=== PATIENT | male | born 1945 | race Hispanic/Latino ===

== ENCOUNTER 2016-12-27 13:32 | Emergency (ER) | payer BC, MEDICARE ==
[2016-12-27 15:07] LABS: Eosinophils % (Auto) 3.2 % (0.0-4.3); Hemoglobin 8.3 gm/dl (11.8-15.2); Mean Corpuscular HGB Conc 32 % (32-34); Mean Corpuscular Hemoglobin 28 pg (28-32); Mean Corpuscular Volume 86 fl (84-94); Platelet Count 374 K/mm3 (140-440); Red Blood Count 3.02 M/mm3 (3.65-5.03); Red Cell Distribution Width 17.3 % (13.2-15.2); White Blood Count 15.8 K/mm3 (4.5-11.0)
[2016-12-27 15:25] LABS: BUN/Creatinine Ratio 9.15; Calcium 8.4 mg/dL (8.4-10.2); Chloride 94.1 mmol/L (98-107); Potassium 3.9 mmol/L (3.6-5.0)
[2016-12-27] MEDS ORDERED: TYLENOL PO ONE (20:30)
[2016-12-27] MEDS ORDERED: TYLENOL ONE (20:44)
--- NOTE | 2016-12-28 01:36 | XRay Report ---
FINAL REPORT PROCEDURE: XR HIP 2-3V LT TECHNIQUE: LEFT hip radiographs, AP and lateral views. HISTORY: pain COMPARISON: No prior studies are available for comparison. FINDINGS: Fracture (s) and/or Dislocation(s): None . Joint space(s): There mild narrowing of the joint space.. Soft tissues: Normal . Bone mineralization: Normal . Foreign bodies: None . IMPRESSION: No evident acute fracture or dislocation. Mild arthritis..
[2016-12-28] MEDS ORDERED: MORPHINE IM ONE (01:53)
--- NOTE | 2016-12-28 02:25 | Emergency Department Report ---
HPI - General Chief Complaint: Extremity Injury, Lower Time Seen by Provider: 12/28/16 01:06 - HPI HPI: This is a 71-year-old male who presents to the emergency department from home with complaint of left hip pain for the past 2-3 days. It started on Tuesday, without any trauma, but became much worse this morning. It is to the point where the patient is unable to ambulate or even lift his leg as it increases his pain. He denies any actual weakness or numbness. Patient has some chronic back pains. When he moves the leg the pain goes down the front of his leg from the hip. He has taken only some Tylenol for his pain without any relief. He has a history of rheumatoid arthritis, COPD, insulin-dependent diabetes, GERD, coronary artery disease with 3 OR/3 stents and quadruple bypass , end-stage renal disease on dialysis Tuesday/Tuesday/Tuesday. Patient missed his dialysis this morning secondary to his symptoms. His primary care doctor is [facility], his micromatic hone operator is Dr. Ramsay, and his medical concierge is Dr. Coffman. No recent travel or sick contacts at home. He denies any history of DVT. No skin color change. ED Past Medical Hx - Past Medical History Previous Medical History?: Yes Hx Hypertension: Yes Hx Heart Attack/AMI: Yes (X 3) Hx Congestive Heart Failure: No Hx Diabetes: Yes (IDDM 10 YEARS) Hx GERD: Yes Hx Renal Disease: Yes Hx Arthritis: Yes Hx Seizures: No Hx Asthma: No Hx COPD: Yes (3-4 YEARS ) Hx HIV: No Additional medical history: AAA - Surgical History Past Surgical History?: Yes Hx Coronary Stent: Yes (X 3) Hx Open Heart Surgery: Yes Hx Pacemaker: No Hx Internal Defibrillator: No Additional Surgical History: aneurysm stent - Social History Smoking Status: Former Smoker Substance Use Type: None - Medications Home Medications: Home Medications Medication Instructions Recorded Confirmed Last Taken Type ALBUTEROL Inhaler [ProAir HFA 2 puff IH QID PRN 10/11/13 12/28/16 12/27/16 History Inhaler] Aspirin [Aspirin BABY CHEW TAB] 81 mg PO DAILY 10/11/13 12/28/16 12/27/16 History Atorvastatin [Lipitor] 40 mg PO QHS 10/11/13 12/28/16 12/27/16 History Clopidogrel Bisulfate [Clopidogrel] 75 mg PO DAILY 10/11/13 12/28/16 12/27/16 History Furosemide 80 mg PO DAILY 10/11/13 12/28/16 12/27/16 History Insulin Glargine,Hum.rec.anlog 50 units SQ HS 10/11/13 12/28/16 12/27/16 History [Lantus Solostar] Insulin Lispro [Humalog Kwikpen] 35 units SQ TID 10/11/13 12/28/16 12/27/16 History Tiotropium [place] [Spiriva] 2 puff PO DAILY 10/11/13 12/28/16 12/27/16 History amLODIPine [Norvasc] 10 mg PO QDAY 30 Days 02/17/14 12/28/16 12/27/16 Rx [place]-3 Acid Ethyl Esters [Lovaza] 2 gm PO BID 05/28/14 12/28/16 12/27/16 History Carvedilol [Coreg] 25 mg PO BID 12/31/15 12/28/16 12/27/16 History Pantoprazole [Protonix TAB] 40 mg PO BID 12/31/15 12/28/16 12/27/16 History Potassium Chloride [Klor-Con] 20 meq PO DAILY 12/31/15 12/28/16 12/27/16 History Sucralfate [Carafate] 1 gm PO TID 12/31/15 12/28/16 12/27/16 History cloNIDine [Catapres] 0.2 mg PO TID 12/31/15 12/28/16 12/27/16 History hydrALAZINE [Apresoline TAB] 100 mg PO TID 12/31/15 12/28/16 12/27/16 History Budesoni/Formotero 160-4.5(Nf) 2 puff IH BID 12/28/16 12/28/16 12/27/16 History [Symbicort 160-4.5 (Nf)] Docusate Sodium [Colace CAP] 100 mg PO DAILY 12/28/16 12/28/16 12/27/16 History Metoprolol [Lopressor] 25 mg PO BID 12/28/16 12/28/16 12/27/16 History Tiotropium [Spiriva] 18 mcg IH QDAY 12/28/16 12/28/16 12/27/16 History Vit B Cmplx 3/FA/Vit C/Biotin 1 each PO DAILY 12/28/16 12/28/16 12/27/16 History [Екатерина-Joycelyn Rx Tablet] oxyCODONE /ACETAMINOPHEN [Percocet 1 tab PO Q6HR PRN #14 tablet 12/28/16 Unknown Rx 5/325] ED Review of Systems ROS: Stated complaint: LEFT HIP PAIN Other details as noted in HPI Comment: All other systems reviewed and negative Constitutional: denies: chills, fever Eyes: denies: eye pain, eye discharge, vision change ENT: denies: ear pain, throat pain Respiratory: denies: cough, shortness of breath, wheezing Cardiovascular: denies: chest pain, palpitations Gastrointestinal: denies: abdominal pain, nausea, diarrhea Genitourinary: denies: urgency, dysuria Musculoskeletal: back pain, arthralgia. denies: joint swelling Skin: denies: rash, lesions Neurological: denies: headache, numbness, paresthesias Physical Exam - Physical Exam Vital Signs: Vital Signs 12/27/16 12/27/16 12/28/16 14:22 20:50 01:04 Temperature 98 F 98.1 F Pulse Rate 55 L 59 L Respiratory 18 18 12 Rate Blood Pressure 144/58 Blood Pressure 155/48 [Right] O2 Sat by Pulse 99 96 Oximetry Physical Exam: GENERAL: The patient is well-developed well-nourished. HEENT: Normocephalic. Atraumatic. Extraocular motions are intact. Patient has moist mucous membranes. Pupils equal reactive to light bilaterally. NECK: Supple. Trachea is midline. CHEST/LUNGS: Clear to auscultation. There is no respiratory distress noted. HEART/CARDIOVASCULAR: Regular. There is no tachycardia. There is no gallop rub or murmur. ABDOMEN: Abdomen is soft, nontender. Patient has normal bowel sounds. There is no abdominal distention. SKIN: There is no rash. Warm and dry. NEURO: The patient is awake, alert, and oriented. The patient is cooperative. The patient has no focal neurologic deficits. The patient has normal speech. MUSCULOSKELETAL: There is no reproducible tenderness to palpation of the left hip. However the patient's left hip and left anterior leg pain are reproduced with the straight leg raise test. Cap refill less than 2 seconds. ED Course Vital Signs 12/27/16 12/27/16 12/28/16 14:22 20:50 01:04 Temperature 98 F 98.1 F Pulse Rate 55 L 59 L Respiratory 18 18 12 Rate Blood Pressure 144/58 Blood Pressure 155/48 [Right] O2 Sat by Pulse 99 96 Oximetry - Consultations Consultation #1: I spoke with the micromatic hone operator res habilitation assistant for Dr Ramsay, Dr Joy, who feels that the patient is safe for discharge home from a nephrology standpoint recommend that he call today to the clinic to get a dialysis session. 12/28/16 06:10 ED Medical Decision Making - Lab Data Result diagrams: 12/27/16 14:52 12/27/16 14:52 - EKG Data -: EKG Interpreted by Me EKG shows normal: sinus rhythm, axis, intervals, QRS complexes (Q waves to the inferior and anteroseptal leads), ST-T waves Rate: bradycardia (56 bpm) - EKG Data When compared to previous EKG there are: no significant change Interpretation: unchanged when compared t (07/22/16) - Radiology Data Radiology results: image reviewed interpreted by me: X-ray of the left hip does not show any fracture or dislocation but there is some narrowing of the joint space and some signs of significant osteoarthritis. - Medical Decision Making This is a 71-year-old male who presents to the emergency department with a 2 to three-day history of left hip pain and some pain that radiates down the leg that has caused him to have trouble ambulating. The patient usually ambulates only short distances and with a cane or crutches as is, but the movement of the left lower extremity worsens the pain to the point where he cannot tolerate it to ambulate at all. He denies any skin color change, any new swelling. Patient also has a history of chronic low back pains and hip pains that if required injections in the past from his orthopedist at [facility]. He was evaluated today with labs, imaging and physical exam. Physical exam the pain is not reproducible to palpation but it is reproducible with the straight leg raise test. Despite the patient missing dialysis yesterday, he does not have any hyperkalemia or significant electrolyte abnormalities. Patient does not appear volume overloaded and is not complaining of any shortness of breath or chest pain. Patient was given 2 doses of pain medication and eventually got to the point where he is much more relaxed and improved. He was able to get up out of bed and ambulate down part of the emergency room hallway to the point where he says he is back to his baseline walking abilities. He has good follow- up with [facility] orthopedics. He will be encouraged to follow-up with the dialysis clinic [facility] to get a dialysis session today. He will be given a prescription for a left lower extremity venous Doppler to be done. If this is positive for DVT he will be referred back to the emergency department. He will also be given some pain medication. He understands to return to the ER with any worsening of symptoms or any acute distress. - Differential Diagnosis sciatica/neuropathy, DVT, muscle strain, muscle spasm Critical Care Time: No Critical care attestation.: If time is entered above; I have spent that time in minutes in the direct care of this critically ill patient, excluding procedure time. ED Disposition Clinical Impression: Left hip pain, Left leg pain CKD (chronic kidney disease) Qualifiers: Chronic kidney disease stage: unspecified stage Qualified Code(s): N18.9 - Chronic kidney disease, unspecified Hypertension Qualifiers: Hypertension type: essential hypertension Qualified Code(s): I10 - Essential ( primary) hypertension Disposition: DISCHARGED TO HOME OR SELFCARE Is pt being admited?: No Does the pt Need Aspirin: No Condition: Stable Instructions: Hypertension (ED), Lumbar Radiculopathy (ED), Arthralgia (ED) Additional Instructions: Please call your dialysis clinic this morning to schedule an appointment to get her dialysis session done today. Please follow-up with your orthopedist in the next few days. I have given you a prescription to go to the outpatient imaging center at the hospital to get a left lower extremity ultrasound done. Return to the emergency department with any worsening of her symptoms, inability to ambulate, or any acute distress. You've been prescribed a medication that is sedating. Therefore this medication cannot be mixed with alcohol, or taken prior to driving, working, or being responsible for children. Prescriptions: oxyCODONE /ACETAMINOPHEN [Percocet 5/325] 1 tab PO Q6HR PRN #14 tablet PRN Reason: Pain Referrals: NIKKY AUGUSTIN MD [Primary Care Provider] - 3-5 Days BEVERLY RAMSAY MD [Staff Physician] - 3-5 Days Time of Disposition: 06:14
[2016-12-28] MEDS ORDERED: DILAUDID IV ONE (03:56)
[2016-12-28 07:18] VITALS: BP 153/57
== END 2016-12-28 06:33 | disposition home or self-care (01) ==
LOC: ED 13:32
DX: M25.552 Pain in left hip (principal); M79.605 Pain in left leg; I12.9 Hypertensive chronic kidney disease with stage 1 through stage 4 chronic kidney disease, or unspecified chronic kidney disease; N18.9 Chronic kidney disease, unspecified; I25.2 Old myocardial infarction; K21.9 Gastro-esophageal reflux disease without esophagitis; J44.9 Chronic obstructive pulmonary disease, unspecified; Z87.891 Personal history of nicotine dependence
CPT/HCPCS: 36415; 73502; 80048; 85025; 93005; 93010; 96372; 96374; 99284; J1170; J2270

== ENCOUNTER 2017-01-21 08:44 | Day surgery (SDC) | payer BC, MEDICARE ==
[2017-01-20 17:05] LABS: Hematocrit 21.4 % (35.5-45.6); Hemoglobin 6.8 gm/dl (11.8-15.2)
[2017-01-21] MEDS ORDERED: NACL 0.9% 250ML 250 ML IV ONE (08:52)
[2017-01-21] MEDS ORDERED: NACL 0.9% 250ML 250 ML ONE (08:56)
[2017-01-21 14:33] VITALS: BP 176/63
== END 2017-01-21 14:45 | disposition home or self-care (01) ==
LOC: OPU 08:44
DX: D64.9 Anemia, unspecified (principal); I25.10 Atherosclerotic heart disease of native coronary artery without angina pectoris; E11.9 Type 2 diabetes mellitus without complications; E78.5 Hyperlipidemia, unspecified; J44.9 Chronic obstructive pulmonary disease, unspecified; Z79.4 Long term (current) use of insulin; Z79.899 Other long term (current) drug therapy; Z87.891 Personal history of nicotine dependence
CPT/HCPCS: 36415; 36430; 85014; 85018; 86850; 86870; 86900; 86901; 86922; J7050; P9016; 86920

== ENCOUNTER 2017-02-24 09:03 | Day surgery (SDC) | payer BC, MEDICARE ==
[2017-02-22 09:58] LABS: Hematocrit 25.9 % (35.5-45.6); Hemoglobin 8.2 gm/dl (11.8-15.2)
== END 2017-02-24 10:25 | disposition home or self-care (01) ==
LOC: OPU 09:03
PROVIDERS: ATTEND Internal Medicine Nephrology
DX: D63.1 Anemia in chronic kidney disease (principal); Z53.8 Procedure and treatment not carried out for other reasons; E11.9 Type 2 diabetes mellitus without complications; I25.10 Atherosclerotic heart disease of native coronary artery without angina pectoris; E78.5 Hyperlipidemia, unspecified; J44.9 Chronic obstructive pulmonary disease, unspecified; I10 Essential (primary) hypertension; Z87.891 Personal history of nicotine dependence
CPT/HCPCS: 36415; 85014; 85018; 86850; 86870; 86900; 86901; 86902; 86920; 86922

== ENCOUNTER 2017-06-07 07:44 | Outpatient (CLI) | payer BC, MEDICARE ==
[2017-06-07] MEDS ORDERED: NACL ONE (08:10)
--- NOTE | 2017-06-08 07:52 | Cat Scan Report ---
CTA NECK: HISTORY: Occlusion and stenosis of bilateral carotid arteries. TECHNIQUE: Helical CT following IV contrast. Sagittal and coronal reformatted images. Rotational MIP images. 3D volume rendering technique. Stenosis was calculated using NASCET criteria. Comparison: No relevant comparisons at this facility. FINDINGS: The visualized aortic arch, innominate artery and proximal bilateral subclavian arteries are widely patent with less than 20% stenosis. Within the right carotid system: There are moderate calcified plaques in the distal right CCA with stenosis measuring 50%. Moderate partially calcified plaque is identified within the right carotid bulb with stenosis measuring 50%. The right ICA is tortuous but widely patent. There are mild to moderate partially calcified plaques in the distal right ICA with stenosis measuring up to 50%.. Within the left carotid system: Severe calcified plaques are identified in the left carotid bulb with stenosis measuring 90%. There are mild to moderate calcified plaques in the distal left ICA with stenosis measuring up to 50%. The left vertebral artery is dominant and patent throughout with less than 20% stenosis. The proximal and distal portions of the right cervical vertebral artery is non-opacified with contrast. There is faint contrast identified in the right cervical vertebral artery from the levels of C3-C6. There appears to be significant stenosis in the proximal and distal right cervical vertebral artery estimated at greater than 80%. IMPRESSION: 90% stenosis in the left carotid bulb. 50% stenosis in the distal right CCA and right carotid bulb. Significant disease is suspected in the right vertebral artery as described above.
== END 2017-06-07 07:45 | disposition home or self-care (01) ==
LOC: CT 07:44
PROVIDERS: ATTEND Radiology Diagnostic Radiology
DX: I65.23 Occlusion and stenosis of bilateral carotid arteries (principal); E11.9 Type 2 diabetes mellitus without complications; I25.10 Atherosclerotic heart disease of native coronary artery without angina pectoris; E78.5 Hyperlipidemia, unspecified; J44.9 Chronic obstructive pulmonary disease, unspecified; Z87.891 Personal history of nicotine dependence
CPT/HCPCS: 70498; Q9967

== ENCOUNTER 2017-11-25 08:29 | Emergency (ER) | payer BC, MEDICARE ==
[2017-11-25] MEDS ORDERED: VERSED IV ONE ×2 (08:57→10:00)
[2017-11-25] MEDS ORDERED: QUELICIN ONE (08:57)
[2017-11-25] MEDS ORDERED: XYLOCAINE CARDIAC IV ONE ×2 (08:57→09:44)
[2017-11-25] MEDS: KEPPRA 1,000 MG in D5W 100 ML IV SCH ×2 (09:04→09:44)
--- NOTE | 2017-11-25 09:04 | Cat Scan Report ---
CT HEAD WITHOUT CONTRAST INDICATION: Neuro deficits <6 hours or symptoms present upon awakening. 98N. COMPARISON: 08/17/[address] and relevant images from 06/07/2017 neck CTA. FINDINGS: Noncontrast head CT now demonstrates a large, approximately 8.6 cm AP x 4.6 cm transverse right frontotemporal acute hyperdense hemorrhage with surrounding hypodense rim of edema. Asymmetric right lateral ventricular effacement and approximately 1 cm [id number] midline shift also noted. Asymmetric right sulcal effacement relative to the left also seen. Mild periventricular hypodensities. No abnormal extra-axial fluid collections. Normal posterior fossa with preserved basilar cisterns. Bilateral cataract surgeries now seen. Partially imaged leftward nasal septal deviation as also right greater than left maxillary and ethmoid sinusitis. Clear remainder imaged paranasal sinuses and mastoid air cells. Extensive atherosclerotic ICA and vertebral artery calcifications. Intact calvarium and scalp. Partly edentulous jaw with few anterior mandibular teeth remaining. CONCLUSION: 1. New large right frontotemporal, possibly hypertensive hemorrhage with surrounding edema and associated mass effect/1 cm [id number] midline shift, as described. 2. Few other findings, including sinusitis, as above. I phoned the above results to Dr. Faust in the ER, 8:44 AM, 11/25/2017. Thank you for the opportunity to participate in this patient's care.
[2017-11-25] MEDS ORDERED: KEPPRA 1,000 MG/NS 0.75% 100ML 1,000 MG/100 ML BAG IV ONE (09:07)
--- NOTE | 2017-11-25 09:12 | Emergency Department Report ---
HPI - General Chief Complaint: Neuro Symptoms/Deficit Time Seen by Provider: 11/25/17 09:05 - HPI HPI: Room 17 The patient is a 72-year-old male presenting with a chief complaint left-sided weakness altered mental status. The patient reportedly complained of left arm weakness to his at 08:00 and distal left-sided weakness and facial droop with EMS. Upon my evaluation in the ED after head CT the patient was grossly obtunded and unresponsive with snoring respirations. The decision to intubate at that time was made using RSI including lidocaine Location: Mental state, V BELT COVERER Duration: [See above] Quality: Weakness, altered mental status Severity: Severe Modifying factors: [see above] Context: [see above] Mode of transportation: [not driving] ED Past Medical Hx - Past Medical History Hx Hypertension: Yes Hx Heart Attack/AMI: Yes (X 3 (most recent 2010)) Hx Diabetes: Yes Hx GERD: Yes Hx Renal Disease: Yes Hx Arthritis: Yes (HX RA) Hx COPD: Yes (ON INHALERS) Additional medical history: AAA - Surgical History Hx Coronary Stent: Yes (X 3) Hx Open Heart Surgery: Yes (CABG 2010) Additional Surgical History: aneurysm stent - Family History Family history: no significant - Social History Smoking Status: Never Smoker - Medications Home Medications: Home Medications Medication Instructions Recorded Confirmed Last Taken Type ALBUTEROL Inhaler [ProAir HFA 2 puff IH QID PRN 10/11/13 08/09/17 08/11/17 05: 45 History Inhaler] Aspirin [Aspirin BABY CHEW TAB] 81 mg PO DAILY 10/11/13 08/09/17 08/11/17 05:45 History Atorvastatin [Lipitor] 40 mg PO QHS 10/11/13 08/11/17 08/10/17 History Clopidogrel Bisulfate [Clopidogrel] 75 mg PO DAILY 10/11/13 08/09/17 08/11/17 05 :45 History Furosemide 80 mg PO DAILY 10/11/13 08/09/17 08/10/17 History Insulin Glargine,Hum.rec.anlog 50 units SQ HS 10/11/13 08/11/17 08/10/17 22:00 History [Lantus Solostar] Insulin Lispro [Humalog Kwikpen] 35 units SQ TID 10/11/13 08/11/17 08/10/17 18: 00 History Tiotropium [place] [Spiriva] 2 puff PO DAILY 10/11/13 08/09/17 08/11/17 05:45 History amLODIPine [Norvasc] 10 mg PO QDAY 30 Days tablet 02/17/14 08/09/17 08/11/17 05 :45 Rx [place]-3 Acid Ethyl Esters [Lovaza] 2 gm PO BID 05/28/14 08/09/17 08/10/17 History Carvedilol [Coreg] 25 mg PO BID 12/31/15 08/09/17 08/11/17 05:45 History Pantoprazole [Protonix TAB] 40 mg PO BID 12/31/15 08/09/17 08/11/17 05:45 History cloNIDine [Catapres] 0.2 mg PO TID 12/31/15 08/09/17 08/11/17 05:45 History hydrALAZINE [Apresoline TAB] 100 mg PO TID 12/31/15 08/09/17 08/11/17 05:45 History Budesoni/Formotero 160-4.5(Nf) 2 puff IH BID 12/28/16 08/09/17 08/11/17 05:45 History [Symbicort 160-4.5 (Nf)] Docusate Sodium [Colace CAP] 100 mg PO DAILY 12/28/16 08/09/17 08/10/17 History Vit B Comp No.3/Folic/C/Biotin 1 each PO DAILY 12/28/16 08/09/17 08/10/17 History [Екатерина-Joycelyn Rx Tablet] HYDROcodone/APAP 5-325 [[place] 1 each PO Q6HR PRN #40 tablet 08/11/17 Unknown Rx 5/325 mg] HYDROcodone/ACETAMINOPHEN [[place] 1 each PO Q4HR PRN #20 tablet 08/14/17 Unknown Rx 5-325 Tablet] ED Review of Systems ROS: Stated complaint: CVA Other details as noted in HPI Comment: Unobtainable due to pts medical conditions Physical Exam - Physical Exam Physical Exam: GENERAL: The patient is well-developed well-nourished male lying on stretcher grossly obtunded HEENT: Normocephalic. Atraumatic. Right pupil 3 mm unable to appreciate reaction. Left pupil 2 mm unable to appreciate reaction. Patient has moist mucous membranes. NECK: Trachea midline CHEST/LUNGS: Clear to auscultation. There is no respiratory distress noted. HEART/CARDIOVASCULAR: Regular. There is no tachycardia. There is no gallop rub or murmur. Hypertensive ABDOMEN:There is no abdominal distention. SKIN: There is no rash. There is no edema. There is no diaphoresis. NEURO: GCS 3T MUSCULOSKELETAL: There is no evidence of acute injury. ED Course - Consultations Consultation #1: 11/25/17 09:07 [place] transfer line called- discussed with the transfer service. Awaiting neurosurgery call back 11/25/17 09:36 Case discussed with [place] critical care physician Dr. Wooten- will accept the patient in transfer. Recommends administering platelets, DDAVP 0.3 mcg/kg and to fly the patient to transport the patient via flight. - Intubation Time Out Performed: No Sedative: Versed Mg Given: 5 Paralytic: Succinylcholine Mg Given: 100 Laryngoscope: Laure Size: 3 ET Tube Size: 8 Tube Secured Depth (cm): 24 Tube Secured Location: teeth Tube Placement Confirmation: visualized tube passing t, equal breath sounds bilat, no breath sounds over epi, confirmation by capnometr Patient Tolerated Procedure: well Intubation Complications: none ED Medical Decision Making - Lab Data Result diagrams: 11/25/17 08:48 11/25/17 08:48 - EKG Data -: EKG Interpreted by [place] EKG shows normal: sinus rhythm Rate: normal - EKG Data When compared to previous EKG there are: previous EKG unavailable Interpretation: other (left bundle branch block) - Radiology Data Radiology results: report reviewed (CT head), image reviewed (CT head) CT HEAD WITHOUT CONTRAST INDICATION: Neuro deficits <6 hours or symptoms present upon awakening. 98N. COMPARISON: 08/17/[address] and relevant images from 06/07/2017 neck CTA. FINDINGS: Noncontrast head CT now demonstrates a large, approximately 8.6 cm AP x 4.6 cm transverse right frontotemporal acute hyperdense hemorrhage with surrounding hypodense rim of edema. Asymmetric right lateral ventricular effacement and approximately 1 cm [id number]-[id number]-[id number] midline shift also noted. Asymmetric right sulcal effacement relative to the left also seen. Mild periventricular hypodensities. No abnormal extra-axial fluid collections. Normal posterior fossa with preserved basilar cisterns. Bilateral cataract surgeries now seen. Partially imaged leftward nasal septal deviation as also right greater than left maxillary and ethmoid sinusitis. Clear remainder imaged paranasal sinuses and mastoid air cells. Extensive atherosclerotic ICA and vertebral artery calcifications. Intact calvarium and scalp. Partly edentulous jaw with few anterior mandibular teeth remaining. CONCLUSION: 1. New large right frontotemporal, possibly hypertensive hemorrhage with surrounding edema and associated mass effect/1 cm [id number]-[id number]-wwhb midline shift, as described. 2. Few other findings, including sinusitis, as above. I phoned the above results to Dr. Faust in the ER, 8:44 AM, 11/25/2017. Thank you for the opportunity to participate in this patient's care. Transcribed By: RS Dictated By: JESSICA JOSE MD Electronically Authenticated By: JESSICA JOSE MD Signed Date/Time: 11/25/17856 DD/ 0 TD/TT: 11/25/17856 - Differential Diagnosis ICH, hypertensive urgency Critical Care Time: Yes Critical care time in (mins) excluding proc time.: 40 Critical care attestation.: If time is entered above; I have spent that time in minutes in the direct care of this critically ill patient, excluding procedure time. ED Disposition Clinical Impression: Hypertensive emergency, Intracranial hemorrhage Disposition: DC/[place]-70 ANOTHER TYPE HLTHCARE Is pt being admited?: No Does the pt Need Aspirin: No Condition: Serious Instructions: Hypertension (ED) Referrals: PRIMARY CAREMD [Primary Care Provider] - 3-5 Days Time of Disposition: 09:39 (awaiting transport)
[2017-11-25 09:13] LABS: Hematocrit 41.7 % (35.5-45.6); Hemoglobin 13.1 gm/dl (11.8-15.2); Mean Corpuscular HGB Conc 31 % (32-34); Mean Corpuscular Hemoglobin 28 pg (28-32); Mean Corpuscular Volume 88 fl (84-94); Red Blood Count 4.73 M/mm3 (3.65-5.03); Red Cell Distribution Width 19.7 % (13.2-15.2)
[2017-11-25] MEDS ORDERED: VASELINE LIP THERAPY TP PRN ×2 (09:13→09:24)
[2017-11-25] MEDS ORDERED: ARTIFICIAL TEARS OPHTH OINT OU PRN ×2 (09:13→09:24)
[2017-11-25 09:18] LABS: Platelet Count 99 K/mm3 (140-440)
[2017-11-25 09:23] LABS: Calcium 8.6 mg/dL (8.4-10.2)
[2017-11-25 09:30] LABS: INR 1.09 (0.87-1.13)
--- NOTE | 2017-11-25 09:30 | XRay Report ---
PORTABLE CHEST INDICATION: ET tube placement. COMPARISON: 08/12/2017 FINDINGS: Portable, frontal chest radiograph demonstrates new ET tube tip approximately 4 cm above the kate. Stable cardiomediastinal silhouette/mild cardiomegaly, sternotomy wires, aortic knob calcifications and osseous structures. EKG leads. Left axillary stent again partially imaged. Mild left retrocardiac opacity now suspected with much obscured left hemidiaphragm. Bronchovascular crowding. Stable minimal fluid or thickening along the right minor fissure. CONCLUSION: Interval intubation and possible left retrocardiac opacity, as described. Please correlate. Thank you for the opportunity to participate in this patient's care.
[2017-11-25 09:31] LABS: Partial Thromboplastin Time 38.8 Sec. (24.2-36.6)
[2017-11-25] MEDS ORDERED: NACL 0.9% 500 ML 500 ML IV ONE (09:34)
[2017-11-25] MEDS ORDERED: APRESOLINE IV ONE (09:35)
[2017-11-25] MEDS ORDERED: QUELICIN IV ONE (09:47)
[2017-11-25] MEDS ORDERED: NACL 0.9% 500 ML IV SCH (10:00)
[2017-11-25] MEDS ORDERED: NACL 0.9% IV ONE (10:00)
[2017-11-25] MEDS ORDERED: MIDAZOLAM 100 MG in NACL 0.9% 80 ML IV SCH (10:00)
[2017-11-25] MEDS ORDERED: CARDENE 50 MG in NACL 0.9% 250ML 230 ML IV SCH (10:00)
[2017-11-25] MEDS ORDERED: DDAVP IV ONE (10:00)
[2017-11-25 10:22] LABS: Basophils % (Manual) 0 % (0.0-1.8); Total Cells Counted 100
[2017-11-25 10:23] LABS: Platelet Estimate Appears Decreased; RBC Morphology Normal
[2017-11-25 10:50] VITALS: BP 156/50
[2017-11-25 11:00] LABS: Chol/HDL Ratio 3.89 %
== END 2017-11-25 10:50 | disposition other institution (70) ==
LOC: ED 08:29
DX: I62.9 Nontraumatic intracranial hemorrhage, unspecified (principal); I10 Essential (primary) hypertension; I25.2 Old myocardial infarction; E11.9 Type 2 diabetes mellitus without complications; K21.9 Gastro-esophageal reflux disease without esophagitis; J44.9 Chronic obstructive pulmonary disease, unspecified
CPT/HCPCS: 31500; 36415; 70450; 71045; 80048; 80061; 82962; 84484; 85007; 85025; 85610; 85670; 85730; 93005; 93010; 96365; 96368; 96375; 99291; J0360; J1953; J2250; J2597; J7040; J7050; 94002; J0330; J2001